=== PATIENT | male | born 1980 | race Caucasian/White ===

== ENCOUNTER 2024-06-30 11:55 | Emergency (ER) | payer MEDICAID, SELFPAY ==
[2024-06-30 12:07] VITALS: BP 136/78
--- NOTE | 2024-06-30 12:22 | ED.GENMED ---
History of Present Illness
General
Chief Complaint: Abdominal Symptoms
Source: patient and spouse
Exam Limitations: none
Time Seen by Provider: 06/30/24 12:14
History of Present Illness
History of Present Illness:
See MDM
Past History
Past History
ED Past Medical History: Asthma
ED Past Surgical History: Orthopedic (Knee)
Social History
Tobacco: Smoker
Alcohol: Occasional
Drug: Marijuana
Personal: Single
Family History
Family History: Unable to obtain
Phy Exam
Physical Exam
Physical Exam:
See MDM
Course
Orders/Labs/Results
Orders:
Orders
06/30/24 12:21
HYDROmorphone [Dilaudid] 0.5 mg IV NOW STA
Ketorolac [Toradol] 30 mg IV NOW STA
06/30/24 12:22
CT Abd/pelvis W Iv Cont Urgent
Comment: unable to tolerate PO
Reason For Exam: R abd pain
06/30/24 12:25
Complete Blood Count/With Diff Urgent
Comprehensive Metabolic Panel Urgent
Lipase Urgent
Abnormal Lab Results
06/30/24
12:25
WBC 18.4 H 10^3/uL
(4.8-10.8)
MCH 31.2 H pg
(27.0-31.0)
MPV 12.5 H fL
(7.4-10.4)
Abs Immat Gran (auto) 0.1 H 10^3/uL
(0-0.05)
Absolute Neuts (auto) 15.3 H 10^3/uL
(1.4-6.5)
Absolute Monos (auto) 0.8 H 10^3/uL
(0.1-0.6)
Neutrophils % 83.1 H %
(42.2-75.2)
Lymphocytes % 11.1 L %
(20.5-51.1)
Sodium 146 H mmol/L
(135-145)
Glucose 127 H mg/dl
(70-99)
Calcium 10.9 H mg/dl
(8.4-10.2)
ALT 51 H U/L
(0-50)
Total Protein 9.1 H g/dl
(6.3-8.2)
Albumin 5.2 H g/dl
(3.5-5.0)
06/30/24 12:25
06/30/24 12:25
Vital Signs
Initial and Last Documented VS:
Initial Vital Signs
Temp Pulse Resp BP Pulse Ox
98.4 F 70 16 136/78 98
06/30/24 12:07 06/30/24 12:07 06/30/24 12:07 06/30/24 12:07 06/30/24 12:07
Last Documented Vital Signs
Temp Pulse Resp BP Pulse Ox
98.4 F 54 11 125/67 97
06/30/24 12:07 06/30/24 13:45 06/30/24 12:45 06/30/24 13:38 06/30/24 13:45
MDM/Problems Addressed
Differential Diagnosis Includes:
HPI and MDM Narrative:
44-year-old male presenting with right abdominal pain. Patient brought back immediately for significant pain where he appears to be whimpering. It is hard to get a good story from him based on his demeanor. His at bedside states that they
have been to multiple emergency departments for similar symptoms and he has had a negative workup and they dismissed his symptoms. Patient is whimpering and crying and does appear to be in significant pain. However, I did discuss with at
bedside that there are many red flags in his story. For one, I cannot elicit any pain to palpation. Without a prior history of A-fib, doubt alternative diagnoses such as mesenteric ischemia. I am concerned that he goes from many different
emergency departments and that his story appears to be pain seeking behavior. As soon as the patient heard this, his demeanor changed immediately and he is no longer whimpering. Instead, he is yelling and threatening for me to do a good job to
find the source of his problem. Based on patient's argumentative and aggressive behavior, I did threaten to escort him out of the hospital if he does not comply with the code of conduct. Patient immediately went back to crying and whimpering.
I had already told the that I will at least search for source of symptoms with a CT scan. I will treat his pain with Toradol and Dilaudid for the time being. I also raised concern and suspicion that he has not followed up as an outpatient. I
also raise suspicion for his routine marijuana use but patient dismissed that this could be the cause
Physical exam
General: Whimpering and tearful. Appears to be in pain
HEENT: protecting airway
Neck: supple
CV: No evidence of cyanosis
Resp: No accessory muscle use
Abd: Non-distended. No pain elicited to palpation
Extremities: No deformities
Neuro: alert
Psych: Intermittently tearful and aggressive
Skin: Intact
Problems Addressed including Acute and Chronic Conditions affecting care:
1. Abdominal pain
Acuity: acute
Prognosis: stable
Details: Will obtain CT to look for infectious or surgical pathology
2. [ ]
Acuity: acute
Prognosis: stable
Details:
3. [ ]
Acuity: acute
Prognosis: stable
Details:
4. [ ]
Acuity: acute
Prognosis: stable
Details:
5. [ ]
Acuity:
Prognosis:
Details:
Updates
12:35 PM nurse is now telling me that his spouse saw him putting his finger down his throat to induce vomiting
Not unexpectedly, CT negative for acute pathology. We did discuss the hepatic hemangioma findings.
I did discuss that his next follow-up should be focused on GI. We discussed the importance of PCP follow-up first. Will give dose of Bentyl and give capsaicin cream and trial
Differential Diagnosis (but not limited to): Pain seeking behavior, colitis, acute cholecystitis
Testing considered: Right upper quadrant ultrasound
Drug therapy (if applicable): OTC meds, please see d/c instruction regarding Rx drugs
Amount and/or Complexity of Data Reviewed
Clinical info obtained from: Patient and
External data reviewed: N/A
Labs I independently reviewed (but not limited to): Leukocytosis but this is likely reactive
Radiology: The CT scan was personally and independently reviewed. In addition, official CT report reviewed.
Pulse Ox: not hypoxic
EKG independently reviewed: N/A
Safety Director: N/A
Critical Care: N/A
Risk of Complication:
Social Determinants of health: Good social support
Discussed with other providers: N/A
Escalation of Care includes Admit/Obs: After being observed in the Emergency Department, pt stable for discharge.
Occasional wrong word or 'sound a like' substitutions may have occurred due to the inherent limitations of voice recognition software. Read the chart carefully and recognize, using context, where substitutions have occurred.
*Critical Care Note
Total Time (30-74mins, 75-104mins- exclusive of procedures): Not Applicable
ED Attending Note
-
Portions of this chart may have been created with voice recognition software.� Occasional wrong word or��sound alike� substitutions may have occurred due to the inherent limitations of voice recognition software.
Discharge Plan
Departure
Patient Disposition: Home (Routine Discharge)
Date of Disposition: 06/30/24
Time of Disposition: 14:58
Patient with high blood pressure during this ER visit?: No
Discharge Problem:
Abdominal pain
Instructions: Abdominal Pain
Prescriptions:
New
dicyclomine 10 mg capsule
10 mg PO QID PRN (Reason: belly pain) Qty: 20 0RF
Referrals:
Steve Carcamo MD [Active] -
UNKNOWN - PT DOES,NOT KNOW [Family Provider] -
Activity Restrictions/Additional Instructions:
Please return for any worsening symptoms.
You may return at any time if you have further concerns.
It is not certain what is causing your pain. The CT scan was negative. There is always the potential of this being a gastrointestinal issue. As we discussed, you would benefit from a gastrointestinal evaluation.
Please follow up with your doctor at the first available appointment, preferably this week.
Thank you for choosing [facility].
Interventions
Interventions:
*Risk Screen - Suicide Last Done: 06/30/24 12:07
*General Assessment Last Done: 06/30/24 13:00
*Neglect/Abuse Screening Last Done: 06/30/24 12:07
*ED- Fall Risk Assessment Last Done: 06/30/24 13:00
*ED COVID-19 Vaccine History Last Done: 06/30/24 13:00
Discharge Date and Time
Print Language: KAZAKH
[2024-06-30 12:35] VITALS: BP 119/90
[2024-06-30 12:42] LABS: % Basophils 0.4 % (0-2); % Eosinophils 0.5 % (0-6); % Immature Granulocytes 0.4 % (0-0.5); % Lymphocytes 11.1 % (20.5-51.1); % Monocytes 4.5 % (1.7-9.3); % Neutrophils 83.1 % (42.2-75.2); Absolute Basophils 0.1 10^3/uL (0-0.2); Absolute Eosinophils 0.1 10^3/uL (0-0.7); Absolute Immature Granulocytes 0.1 10^3/uL (0-0.05); Absolute Monocytes 0.8 10^3/uL (0.1-0.6); Absolute Neutrophils 15.3 10^3/uL (1.4-6.5); Hematocrit 50.4 % (39.0-52.0); Hemoglobin 17.4 g/dL (13.0-18.0); Mean Corp Hgb Conc. 34.5 g/dL (33.0-37.0); Mean Corpuscular Hgb 31.2 pg (27.0-31.0); Mean Corpuscular Volume 90.3 fL (80.0-94.0); Mean Platelet Volume 12.5 fL (7.4-10.4); Nucleated Red Blood Cells % 0 % (-); Platelet Count 259 10^3/uL (130-400); Red Blood Cell Count 5.58 10^6/uL (4.70-6.10); Red Cell Dist. Width 12.7 % (11.5-14.5); White Blood Cell Count 18.4 10^3/uL (4.8-10.8)
[2024-06-30] MEDS: TORADOL 30 MG IV (12:42)
[2024-06-30] MEDS: DILAUDID 0.5 MG IV (12:43)
[2024-06-30 12:56] LABS: ALT (SGPT) 51 U/L (0-50); AST (SGOT) 33 U/L (17-59); Albumin 5.2 g/dl (3.5-5.0); Alkaline Phosphatase 97 U/L (38-126); Blood Urea Nitrogen 18 mg/dl (9-20); Calcium 10.9 mg/dl (8.4-10.2); Carbon Dioxide 26 mmol/L (22-30); Chloride 105 mmol/L (98-107); Glucose 127 mg/dl (70-99); Lipase 67 U/L (23-300); Potassium 4.7 mmol/L (3.5-5.1); Sodium 146 mmol/L (135-145); Total Bilirubin 1.1 mg/dl (0.2-1.3); Total Protein 9.1 g/dl (6.3-8.2); eGFR > 60.00
[2024-06-30 13:00] VITALS: BP 135/83; BMI 21.2
[2024-06-30 13:38] VITALS: BP 125/67
[2024-06-30 14:00] VITALS: BP 136/75
[2024-06-30 15:00] VITALS: BP 130/59
[2024-06-30] MEDS: BENTYL 20 MG IM (15:10)
[2024-06-30] MEDS: ZOSTRIX-HP 0.075% CREAM 1 APPLIC TOPICAL (15:32)
== END 2024-06-30 15:40 | disposition home or self-care (01) ==
LOC: EMR 11:55
PROVIDERS: EMERGENCY PHYSICIAN Student in an Organized Health Care Education/Training Program
DX: R10.9 Unspecified abdominal pain (principal); F12.90 Cannabis use, unspecified, uncomplicated; J45.909 Unspecified asthma, uncomplicated; F17.200 Nicotine dependence, unspecified, uncomplicated
CPT/HCPCS: 99284; 96374; 96375; 96372; 74177; 80053; 83690; 85025; Q9967

== ENCOUNTER 2024-07-06 15:16 | Inpatient (IN) | payer OTHER, SELFPAY ==
[2024-07-06 09:25] VITALS: BP 138/78
[2024-07-06 10:18] LABS: % Basophils 0.7 % (0-2); % Eosinophils 0.4 % (0-6); % Immature Granulocytes 0.4 % (0-0.5); % Lymphocytes 12.9 % (20.5-51.1); % Monocytes 3.8 % (1.7-9.3); % Neutrophils 81.8 % (42.2-75.2); Absolute Basophils 0.1 10^3/uL (0-0.2); Absolute Eosinophils 0.1 10^3/uL (0-0.7); Absolute Immature Granulocytes 0.1 10^3/uL (0-0.05); Absolute Monocytes 0.6 10^3/uL (0.1-0.6); Absolute Neutrophils 12.4 10^3/uL (1.4-6.5); Hematocrit 44.5 % (39.0-52.0); Hemoglobin 15.6 g/dL (13.0-18.0); Mean Corp Hgb Conc. 35.1 g/dL (33.0-37.0); Mean Corpuscular Hgb 31.7 pg (27.0-31.0); Mean Corpuscular Volume 90.4 fL (80.0-94.0); Mean Platelet Volume 12.1 fL (7.4-10.4); Nucleated Red Blood Cells % 0 % (-); Platelet Count 236 10^3/uL (130-400); Red Blood Cell Count 4.92 10^6/uL (4.70-6.10); Red Cell Dist. Width 12.4 % (11.5-14.5); White Blood Cell Count 15.1 10^3/uL (4.8-10.8)
[2024-07-06 10:34] LABS: ALT (SGPT) 35 U/L (0-50); AST (SGOT) 29 U/L (17-59); Albumin 4.4 g/dl (3.5-5.0); Alkaline Phosphatase 60 U/L (38-126); Blood Urea Nitrogen 16 mg/dl (9-20); Calcium 9.9 mg/dl (8.4-10.2); Carbon Dioxide 24 mmol/L (22-30); Chloride 107 mmol/L (98-107); Glucose 117 mg/dl (70-99); Lipase 83 U/L (23-300); Potassium 4.3 mmol/L (3.5-5.1); Sodium 142 mmol/L (135-145); Total Bilirubin 0.7 mg/dl (0.2-1.3); Total Protein 7.5 g/dl (6.3-8.2); eGFR > 60.00
--- NOTE | 2024-07-06 11:02 | ED.GENMED ---
History of Present Illness
General
Chief Complaint: Abdominal Pain
Source: patient and spouse
Exam Limitations: none
Time Seen by Provider: 07/06/24 09:45
Nursing documentation reviewed up to this point in time: agreed with
History of Present Illness
History of Present Illness:
44-year-old male with a past medical history of asthma, hiatal hernia, chronic nausea/vomiting presents to the ER with his today for evaluation of abdominal pain with nausea and vomiting. Patient was seen in this emergency room 06/30/2024 with
same symptoms and was found to have normal CT abdomen pelvis, ultimately discharged with prescription for Bentyl and referral to GI. He says symptoms have been ongoing for over a week. Taking history is very difficult as patient is rolling around
in the bed saying 'my tummy hurts.' He describes initially some pain in the epigastrium now seems to be radiating diffusely. No clear triggering or relieving factors noted. Associated with nausea and vomiting�he says he had some streaks of
hematemesis today. He has also had diarrhea and again he notes that he had some blood in his diarrhea. says he had a low-grade fever this week. He says he feels some mild lightheadedness. His says that he has been seen for this in the
past with no clear diagnosis�he says he was told he had a hiatal hernia 'but then they told me it healed.' He is requesting Toradol and Dilaudid for his pain.
Past History
Past History
ED Past Medical History: Asthma
ED Past Surgical History: Orthopedic (Knee)
Social History
Tobacco: Smoker
Alcohol: Occasional
Drug: Marijuana
Personal: Single
Family History
Family History: Unable to obtain
Review of Systems
Review of Systems
All Other Systems: ROS reviewed and negative except as documented in HPI and ROS
Constitutional: Reports fever
Respiratory: Denies trouble breathing
Cardiac: Denies chest pain
ABD/GI: Reports abdominal pain, nausea, vomiting, diarrhea and bloody stools
: Denies dysuria or flank pain
Musculoskeletal: Denies neck pain
Neurological: Reports dizzy; Denies headache
Phy Exam
Physical Exam
Physical Exam:
General: Rolling around in the bed, whimpering and saying 'my tummy hurts, my tummy hurts'
Head: Normocephalic, atraumatic
Eyes: Conjunctiva normal, sclera anicteric
Throat: Airway intact, handling secretions
Neck: Trachea midline, supple without meningismus
Lungs: Clear to auscultation bilaterally, no wheezing, rales, rhonchi
Heart: Regular rate and rhythm, no murmurs, gallops, or rubs
Abd: Soft, non distended, no reproducible tenderness in the abdomen, no palpable masses
Neuro: No gross deficits
Extremities: No edema in extremities, equal pulses in all extremities
Scores
Heart Failure Risk
Heart Failure Risk Score: Not Applicable
Heart Score for Chest Pain Patients
STEMI patient?: Not applicable
Withdrawal Assessment of Alcohol
Withdrawal Assessment Completed?: Not applicable
Course
Orders/Labs/Results
Orders:
Orders
07/06/24 10:06
Complete Blood Count/With Diff Urgent
Comprehensive Metabolic Panel Urgent
Lipase Urgent
07/06/24 11:00
CT Abd/pel W Iv And Oral Contr Urgent
Comment:
Reason For Exam: worsening abdominal pain
Iohexol [Omnipaque] See Protocol PO NOW STA
Ketorolac [Toradol] 15 mg IV NOW STA
Ondansetron Injectable [Zofran] 4 mg IV NOW STA
07/06/24 11:20
Alcohol Urgent
07/06/24 11:28
Drug Screen, Urine [Urine Drug Abuse Screen] Urgent
Date Specimen was Collected: 07/06/24
Time Specimen was Collected: 11:24
Urinalysis Reflex To Culture Urgent
Date Specimen was Collected: 07/06/24
Time Specimen was Collected: 11:24
Urine Microscopic Reflex Cult Urgent
Urine Culture Urgent
ZACH Source: U
Specimen Description:
Date Specimen was Collected: 07/06/24
Time Specimen was Collected: 11:24
07/06/24 12:02
Lorazepam [Ativan] 1 mg IV NOW STA
07/06/24 13:43
Haloperidol Lactate [Haldol] 1 mg IV NOW STA
07/06/24 13:55
Electrocardiogram (*1) Urgent
Reason for Study: QTc Monitoring
EKG- Treatment ONCE
07/06/24 13:59
Pantoprazole [Protonix IV] 40 mg IV NOW STA
Abnormal Lab Results
07/06/24 07/06/24
10:06 11:28
WBC 15.1 H 10^3/uL
(4.8-10.8)
MCH 31.7 H pg
(27.0-31.0)
MPV 12.1 H fL
(7.4-10.4)
Abs Immat Gran (auto) 0.1 H 10^3/uL
(0-0.05)
Absolute Neuts (auto) 12.4 H 10^3/uL
(1.4-6.5)
Neutrophils % 81.8 H %
(42.2-75.2)
Lymphocytes % 12.9 L %
(20.5-51.1)
Glucose 117 H mg/dl
(70-99)
Leukocyte Esterase Rfl 1+ A
(Negative)
Urine Albumin (Reflex) 2+ A
(Neg - Trace)
U Marijuana (THC) Screen Positive H
(Negative)
07/06/24 10:06
07/06/24 10:06
Vital Signs
Initial and Last Documented VS:
Initial Vital Signs
Temp Pulse Resp BP Pulse Ox
37.1 C 86 16 138/78 99
07/06/24 09:25 07/06/24 09:25 07/06/24 09:25 07/06/24 09:07/06/24 09:25
Last Documented Vital Signs
Temp Pulse Resp BP Pulse Ox
37.1 C 86 16 138/78 99
07/06/24 09:25 07/06/24 09:25 07/06/24 09:25 07/06/24 09:25 07/06/24 09:25
MDM/Problems Addressed
Differential Diagnosis Includes:
Cholelithiasis, cholecystitis, pancreatitis, gastritis, cyclic vomiting, cannabinoid hyperemesis, drug-seeking behavior
MDM/Problems Addressed:
44-year-old male returns to the emergency room with his for evaluation of abdominal pain with nausea, vomiting, diarrhea. Notes some slight hematemesis and hematochezia. Was seen 06/30, had reassuring CT scan, slight leukocytosis but otherwise
normal labs and was discharged with prescription for Bentyl and a GI referral. Symptoms never improved after discharge and he feels they are worsening which prompted return visit. Vitals and exam as above. Will place an IV check labs including a
CBC and a CMP, lipase, urine studies. Will check CT of the abdomen pelvis with p.o. and IV contrast today. Treat symptomatically�Toradol and Zofran to start. Reassess after the above.
Patient still having pain and nausea after initial treatment. Will trial some Ativan, suspect there may be an element of cyclic vomiting/hyperemesis syndrome.
On reassessment after Ativan patient now resting comfortably symptoms seem to have resolved. We are pending CT with p.o. and IV contrast. Continue to monitor.
Patient reports symptoms worsening once again�trial low-dose Haldol.
Patient still feeling unwell he does not feel that he can go home�although he has not had any vomiting here he has had some retching. He had 1 episode of diarrhea. He says that he does not think he can see GI expeditiously due to issues with
insurance. Will plan to admit for intractable nausea/vomiting with abdominal discomfort, failure of outpatient treatment. Discussed case with hospitalist.
*Radiology
Radiology exam reviewed: radiology read reviewed
*Pulse Oximetry
Patient hypoxic: no
*Critical Care Note
Total Time (30-74mins, 75-104mins- exclusive of procedures): Not Applicable
Data Reviewed
Review of Other/Old Records Reveals: Labs, Records and Radiology Studies
Source: patient, records and spouse
Patient Management
Social determinants of health affecting care: Financial situation
Discussion with other providers: Hospitalist (Discussed with hospitalist)
Escalation/DeEscalation of care consider admission/obs:
Admission indicated
ED Attending Note
-
Portions of this chart may have been created with voice recognition software.� Occasional wrong word or��sound alike� substitutions may have occurred due to the inherent limitations of voice recognition software.
Discharge Plan
Departure
Prescriptions:
No Action
dicyclomine 10 mg capsule
10 mg PO QID PRN (Reason: belly pain) Qty: 20 0RF
Referrals:
UNKNOWN - PT DOES,NOT KNOW [Family Provider] -
Interventions
Interventions:
*Risk Screen - Suicide Last Done: 07/06/24 10:17
*Neglect/Abuse Screening Last Done: 07/06/24 10:17
*ED COVID-19 Vaccine History Last Done: 07/06/24 10:17
YK-Bddlpc-Jvgnkzctif Assessment Last Done: 07/06/24 10:18
Discharge Date and Time
Print Language: BRAZILIAN
[2024-07-06] MEDS: TORADOL 15 MG IV (11:22)
[2024-07-06] MEDS: ZOFRAN 4 MG IV (11:22)
[2024-07-06] MEDS: OMNIPAQUE 50 ML PO (11:22)
[2024-07-06 11:41] LABS: Urine Albumin 2+ (Neg - Trace); Urine Bilirubin Negative (Negative); Urine Character Clear (Clear); Urine Color Yellow; Urine Glucose Negative (Negative); Urine Ketone Negative (Negative); Urine Leukocyte 1+ (Negative); Urine Nitrite Negative (Negative); Urine Occult Blood Negative (Negative); Urine Urobilinogen Negative (Neg - 1+)
[2024-07-06 11:59] LABS: Alcohol None Detected
[2024-07-06 12:03] LABS: Amphetamines Negative (Negative); Barbiturates Negative (Negative); Benzodiazepines Negative (Negative); Buprenorphine Negative (Negative); Cocaine Negative (Negative); Marijuana Positive (Negative); Methadone Negative (Negative); Methamphetamines Negative (Negative); Opiates Negative (Negative); Phencyclidine Negative (Negative); Tricyclic Antidepressants Negative (Negative)
[2024-07-06] MEDS: ATIVAN 1 MG IV (12:14)
[2024-07-06 12:42] LABS: Urine Amorphous Seen; Urine Mucus Many; Urine Squamous Cell 0-2 /LPF (Few); Urine Urothelial Cell 0-2 /LPF (FEW)
[2024-07-06 12:43] LABS: Urine Red Blood Cell 0-2 /HPF (0-2)
[2024-07-06] MEDS: HALDOL 1 MG IV (13:51)
[2024-07-06 14:00] VITALS: BP 145/91
--- NOTE | 2024-07-06 14:16 | HPS.HSE ---
Addendum entered and electronically signed by Ana Alex DO 07/06/24 15:44:
The patient is seen and examined. I discussed the patient at length with Dora, nurse practitioner, and I agree with her history and physical physical and assessment and plan of care as below. The following additions are left lower abdominal upper
pelvis focal area of jejunal jejunal intussusception with no evidence to suggest associated obstruction. There are top normal size lymph nodes in the periportal and portacaval regions similar to previous examination.
The patient is a 44-year-old gentleman with past medical history significant for asthma, hiatal hernia, anxiety, marijuana use who presents to the emergency department for evaluation of abdominal pain associate with nausea and vomiting that been
going on for 1 week. The patient has associated anorexia. He has been seen in the past for episodes of cyclical vomiting. He describes some diffuse epigastric and generalized abdominal pain.
Vital signs are reviewed. He is afebrile and hemodynamically stable.
Lungs are clear to auscultation bilaterally, cardiovascular regular rate and rhythm no murmurs rubs or gallops, abdomen is soft without any peritoneal signs
Labs reviewed as per below. WBC 15.1.
A/P
# Intractable nausea vomiting with epigastric discomfort likely gastritis versus cyclic vomiting vs cannabinoid hyperemesis syndrome , an episode of blood in the stool, and vomiting blood-the patient is unable to quantify
-GI consultation is appreciated
Keep the patient n.p.o.
IV PPI therapy
IV fluids
Supportive management
Stool studies
Hemoccult stool
Marijuana cessation
#Jejunal-Jejunal Intussusception-this is an acute finding and general surgery has been consulted.
- Keep the patient n.p.o. and await general surgery recommendations. There is no evidence for an acute obstruction.
Original Note:
Family Physician
-
Family Physician: NOT KNOW UNKNOWN - PT DOES
Chief Complaint
-
abdominal pain,n,v,d
History of Present Illness
44-year-old male with a past medical history of asthma, hiatal hernia, anxiety presents to the ER with his today for evaluation of abdominal pain with nausea and vomiting for past one week. patient was evaluated in ER on 06/30. CT obtained with
no acute findings and was sent home Bentyl. patient stated on improvement in his symptoms. He describes initially some pain in the epigastrium now seems to be radiating diffusely. No clear triggering or relieving factors noted. today he took Bipto
Bismol. patient stated he noticed blood in the stool and diarrhea today. he had a low-grade fever this week. He says he feels some mild lightheadedness. Patient denied any headache, dizziness syncope. Patient denied any chills, chest pain, short
of breath. Patient denies dysuria hematuria.
CT obtained in ER. Admitting for further manage
Medical History
Past Medical History
Past Medical History: Reports Other
Additional Past Medical History:
Anxiety, hiatal hernia
Past Surgical History: Reports Other
Additional Past Surgical History:
Right knee surgery and right hand surgery
Social History
Tobacco: Non-smoker (0.5 pack)
Alcohol: None
Drug: Marijuana (Smokes last night)
Personal:
Living: With Family
Family History
Family History: Not pertinent
Allergies / Home Medications
Allergies reflects when Allergies were last updated in [employer].
Home Medications with original date entered in [employer]
Allergy/Medication List:
Allergies
Allergy/AdvReac Type Severity Reaction Status Date / Time
No Known Allergies Allergy Unverified 07/06/24 09:28
Home Medications
dicyclomine 10 mg capsule 10 mg PO QIDPRN PRN belly pain 07/06/24
Review of Systems
-
Constitutional: Reports No Symptoms
EENT: Reports No Symptoms
Respiratory: Reports No Symptoms
Cardiac: Reports No Symptoms
Abdomen/GI: Reports Abdominal Pain, Nausea, Vomiting, Diarrhea and Bloody Stools
: Reports No Symptoms
Musculoskeletal: Reports No Symptoms
Skin: Reports No Symptoms
Neurological: Reports No Symptoms
Endocrine: Reports No Symptoms
Hematologic/Lymphatic: Reports No Symptoms
Psych: Reports No Symptoms
Physical Exam
Vital Signs
Vital Signs
Temp Pulse Resp BP Pulse Ox
98.8 F 86 16 138/78 99
07/06/24 09:25 07/06/24 09:25 07/06/24 09:25 07/06/24 09:25 07/06/24 09:25
Physical Exam
General: Well Developed, Well Nourished and No Apparent Distress
HEENT: NormoCephalic, Moist mucous membranes and Atraumatic
Respiratory: Clear
Cardiac: S1/S2 and Regular Rhythm; No Murmur or Rub
GI: Soft, Non Tender, Non Distended and Normal Bowel Sounds; No Organomegaly
Rectal: Deferred by Provider
Musculoskeletal: No Clubbing, No Cyanosis and No Edema
Skin: No Rash
Neuro: AO x 3 and Nonfocal/grossly intact
Psych: Calm
Laboratory Results
-
07/06/24 10:06
07/06/24 10:06
Laboratory Results
Total Bilirubin 0.7 mg/dl (0.2-1.3) 07/06/24 10:06
AST 29 U/L (17-59) 07/06/24 10:06
ALT 35 U/L (0-50) 07/06/24 10:06
Alkaline Phosphatase 60 U/L (38-126) 07/06/24 10:06
Lipase 83 U/L (23-300) 07/06/24 10:06
Data Reviewed
-
Lab Data: Labs Reviewed by me
Impression/Plan
-
# Intractable nausea vomiting with epigastric discomfort likely gastritis versus cyclic vomiting vs cannabinoid hyperemesis syndrome
#Jejunal-Jejunal Intussusception
- WBCs 15.1
- Positive marijuana
- CT abdomen pelvis Three hepatic hemangiomas, stable. Hepatomegaly.In the left lower abdomen/upper pelvis, focal area of jejunal-jejunal intussusception with no evidence to suggest associated obstruction. Please see above discussion.Top-normal
sized lymph nodes in the periportal and portacaval region, similar to previous examination. Statistically, these are likely reactive lymph nodes, often seen in this location. No further imaging follow-up is recommended.
- CT abdomen pelvis on 06/30 with impression of no acute pathology of the abdomen. Hepatic hemangiomas, mild diverticulosis, moderate prostate hypertrophy
- Patient received Haldol, Toradol, Ativan, Zofran, Protonix in the ER
- Will keep patient n.p.o
- Zofran as needed for nausea vomiting
-dilaudid prn for pain
- IV PPI continued
- GI consult
-surgery consulted
#Nicotine dependence
-smokes 0.5 daily
-denied Nicotine patch
# DVT prophylaxis
- SCD
#CODE STATUS
- Full code
[2024-07-06] MEDS: PROTONIX IV 40 MG IV (14:45)
--- NOTE | 2024-07-06 15:30 | CON.GI ---
Addendum entered and electronically signed by Lakia Grajeda DO 07/06/24 16:45:
The patient was seen and examined by me independently in collaboration with the nurse practitioner.
Past medical history/social history/medications/allergies/family history reviewed.
Lab data and imaging data reviewed.
Ankit Pedro is a 44-year-old male with past medical history of anxiety, PTSD, chronic medical marijuana use, history of suspected cannabinoid hyperemesis who returns to the ER with persistent nausea, vomiting, lower abdominal pain and reports of
hematemesis as well as bright red blood per rectum. He was seen in the ER last Tuesday with abdominal pain, CT abdomen pelvis was unremarkable he was discharged home with a prescription for Bentyl and instructions to follow-up with GI as an
outpatient. He reports having streaks of bright red blood in his vomit as well as drops of bright red blood in his stool, had some episodes of diarrhea. He does admit that he intermittently sees some blood with wiping. His most distressing
symptom at this time is his abdominal pain, described as a squeezing in his abdomen. He reports daily nausea and morning emesis for the last 2 years. He uses marijuana daily, since he was a teenager due to a very difficult childhood and PTSD.
WBC 18.4 -->15.1
Hgb 17.4 --> 15.6
MCV 90.4
Plt 236
BUN 16/Cr. 0.8
Tbili 0.7
AST 29
ALT 35
Alk phos 60
Lipase 83
-CT A/P w/ IV Contrast 06/30/24: 3x hepatic hemangiomas (the largest measures 6.9 cm); bowel loops are normal caliber. TI and appendix are normal. Mild diverticulosis. Mild fecal material throughout the colon.
-CT A/P with IV PO and IV Contrast 07/06/24: Hepatomegaly. Previously seen hemangiomas are again noted. focus of jejunal-jejunal intussusception in the left lower abdomen/upper pelvis, no evidence for more proximal obstruction. No significant bowel
wall thickening or diverticulitis. Likelyl reactive lymph nodes, which were previously visualized.
N/V-- given daily marijuana use, AM emesis which improves throughout the day, very consistent with cannabinoid hyperemesis syndrome vs. cyclic vomiting (not as consistent with this as this has discrete episodes with prolonged periods of being
asymptomatic) vs. EoE vs. rumination vs. functional vs. other
-reports hematemesis-- given stable hemoglobin and BUN, story is more consistent with some streaks of blood from retching
-monitor H&H
-PPI
-IVF
#Bright red blood per rectum
-intermittent, small volume hematochezia, overall, consistent with hemorrhoidal bleeding, however, he is overdue for CRC Screening and cannot definitely rule out alternative etiology. That said, with stable hemoglobin and normal CT scan, defer to
outpatient at which time we can perform both EGD and colonoscopy
#Abdominal pain-- unclear if this is baseline vs. new abdominal pain related to retching vs. gastroenteritis vs. intussusception
-finding of jejunal-jejunal intussusception on CT scan, not seen on prior CT on 06/30, no obstruction
-this can be incidental and transient and not highly suspicious his symptoms are related
-surgical evaluation pending
Original Note:
Consultation
-
Date/Time Consultation Requested: 07/06/24 1500
Date/Time Consultation Performed: 07/06/24 1530
Requesting Provider: BROOKLYNN Mast
Performing Provider: BROOKLYNN Rico, Eloisa Grajeda DO
Reason for Consultation: abdominal pain, nausea, hematemesis
Medical History
Chief Complaint / HPI
Chief Complaint: abdominal pain, nausea, vomiting and hematemesis
History of Present Illness:
Pt is a 44yo with hx asthma, PTSD, HH, hepatic hemangioma per prior imaging, Cannibis use with GI issues for last 2 years. He admits to period vomiting episodes but noted worsening abdominal pain and vomiting blood prompting 2 ER evals this week.
On admission initially noted with WBC 18,400 on 06/30 now 15,100 with hbg 17.4 then 15.6. He is otherwise noted with na 146, AST 51 and mild glucose elevation but otherwise stable labs. He completed 2 CT's scans. First with IV contrast with noted
hepatic hemangioma, diverticulosis and prostate hypertrophy and repeat / with IV and oral contrast with HM, hepatic hemangioma focal intussusception without obstruction and top sized lymph nodes in periportal and portacaval region likely reactive.
Denies NSAID use. No new medications.
In review with patient this recent episode with patient and vomiting began 1 weeks ago. He admits to vomiting but non specific about volume and amount of blood seen. He does complaint of severe pain with sense of squeezing in abdomen with prior
ER visits without etiology. He admits to GERD and bloating since last week. he also admit to occasional rectal bleeding with drips of blood from rectum- small volume. Prior to admission stools regular without diarrhea or constipation. Rare
medication use but does take pepto and tums as needed. + chronic Marajuana use that he uses for hx PTSD and anxiety. Denies hx EGD or colonoscopy in past. No NSAID or new medications.
Past Medical History
Past Medical History: Asthma, Psychiatric (PTSD, anxiety) and Other (hiatal hernia, hepatic hemangioma per CT )
Past Surgical History: Orthopedic (knee surgery , hand surgery )
Social History
Tobacco: Smoker
Alcohol: Former (heavy in younger years )
Drug: Marijuana
Personal:
Living: With Family
Employment: Employed
Family History
Family History: Reviewed & Not Pertinent
Allergies / Home Medications
Allergy/AdvReac Type Severity Reaction Status Date / Time
No Known Allergies Allergy Unverified 07/06/24 09:28
�Medication �Instructions �Recorded
dicyclomine 10 mg capsule 10 mg PO QIDPRN PRN belly pain 07/06/24
Review of Systems
-
History Source: Patient
Constitutional: Reports Weight Loss (few lbs last week )
EENT: Reports No Symptoms
Respiratory: Reports No Symptoms
Cardiac: Reports No Symptoms
Abdomen/GI: Reports Abdominal Pain, Nausea and Vomiting (reported hematemesis )
: Reports Dark Urine
Musculoskeletal: Reports No Symptoms
Skin: Reports No Symptoms
Neurological: Reports Weakness
Endocrine: Reports No Symptoms
Hematologic/Lymphatic: Reports Bleeding
Vital Signs
Temp Pulse Resp BP Pulse Ox
98.8 F 92 20 145/91 95
07/06/24 09:25 07/06/24 14:45 07/06/24 14:45 07/06/24 14:00 07/06/24 14:45
Physical Exam
Exam
General: Well Developed, Well Nourished and No Apparent Distress
HEENT: Normocephalic and Anicteric
Respiratory: Clear
Cardiac: Regular Rhythm
GI: Soft, Non Distended and Tender (mild diffuse )
Musculoskeletal: No Clubbing and No Cyanosis
Skin: Warm and Dry
Neuro: Awake, Alert and AO x 3
Psych: Calm and Other (anxious with ongoing pain )
Results
WBC 15.1 10^3/uL (4.8-10.8) H 07/06/24 10:06
Hgb 15.6 g/dL (13.0-18.0) 07/06/24 10:06
Hct 44.5 % (39.0-52.0) 07/06/24 10:06
MCV 90.4 fL (80.0-94.0) 07/06/24 10:06
Plt Count 236 10^3/uL (130-400) 07/06/24 10:06
Absolute Neuts (auto) 12.4 10^3/uL (1.4-6.5) H 07/06/24 10:06
Sodium 142 mmol/L (135-145) 07/06/24 10:06
Potassium 4.3 mmol/L (3.5-5.1) 07/06/24 10:06
Chloride 107 mmol/L (98-107) 07/06/24 10:06
Carbon Dioxide 24 mmol/L (22-30) 07/06/24 10:06
BUN 16 mg/dl (9-20) 07/06/24 10:06
Creatinine 0.8 mg/dL (0.7-1.3) 07/06/24 10:06
Calcium 9.9 mg/dl (8.4-10.2) 07/06/24 10:06
Total Bilirubin 0.7 mg/dl (0.2-1.3) 07/06/24 10:06
AST 29 U/L (17-59) 07/06/24 10:06
ALT 35 U/L (0-50) 07/06/24 10:06
Alkaline Phosphatase 60 U/L (38-126) 07/06/24 10:06
Lipase 83 U/L (23-300) 07/06/24 10:06
Diagnostic Image Results:
06/30/24 CT Abd/pelvis W Iv Cont
IMPRESSION: No acute pathology of the abdomen or pelvis identified.
Findings suggesting hepatic hemangiomas.
Mild diverticulosis. No evidence of acute diverticulitis.
Limited exam of the bowel without oral contrast.
Moderate prostate hypertrophy.
07/06/24 CT Abd/pel W Iv And Oral Contr
IMPRESSION: Three hepatic hemangiomas, stable. Hepatomegaly.
In the left lower abdomen/upper pelvis, focal area of jejunal-jejunal intussusception with no evidence to suggest associated obstruction. Please see above discussion.
Top-normal sized lymph nodes in the periportal and portacaval region, similar to previous examination. Statistically, these are likely reactive lymph nodes, often seen in this location. No further imaging follow-up is recommended.
Prior GI Procedures:
EGD: none
Colonoscopy:none
Assessment / Plan
-
Pt is a 44yo with hx asthma, PTSD, HH, hepatic hemangioma per prior imaging, Cannibis use with GI issues for last 2 years. He admits to period vomiting episodes but noted worsening abdominal pain and vomiting blood prompting 2 ER evals this week.
On admission initially noted with WBC 18,400 on 06/30 now 15,100 with hbg 17.4 then 15.6. He is otherwise noted with na 146, AST 51 and mild glucose elevation but otherwise stable labs. He completed 2 CT's scans. First with IV contrast with noted
hepatic hemangioma, diverticulosis and prostate hypertrophy and repeat 07/06 with IV and oral contrast with HM, hepatic hemangioma focal intussusception without obstruction and top sized lymph nodes in periportal and portacaval region likely reactive.
Denies NSAID use. No new medications. In review with patient this recent episode with patient and vomiting began 1 weeks ago. He admits to vomiting but non specific about volume and amount of blood seen. He does complaint of severe pain with
sense of squeezing in abdomen with prior ER visits without etiology. He admits to GERD and bloating since last week. he also admit to occasional rectal bleeding with drips of blood from rectum- small volume. Rare medication use but does take
pepto and tums as needed. + chronic Marajuana use that he uses for hx PTSD and anxiety. Denies hx EGD or colonoscopy in past. No NSAID or new medications.
-abdominal pain
-nausea/vomiting with ? streaks of blood
-rectal bleeding
-CT with focal intussusception without obstruction
-mild leukocytosis
-hx marijuana use
other med problems:
-PTSA
-HH
-hepatic hemangioma
-asthma
PLAN:
etiology of symptoms related to intussusception noted on CT, Cannibis use, viral illness, anxiety related vs other
agree with surgical eval
discussed possible Cannibis hyperemesis disorder as a possibility--discussed abstinence with monitoring of anxiety symptoms
cont supportive care with IVF, pain control, antiemetics
hbg stable 15-17 range - hold on EGD unless signs of aggressive bleeding
cont PPI
NSAID avoidance which pt denies
pain control per hospitalist
I have asked staff to record emesis and vomiting
monitor for recurrent rectal bleeding and need for further inpatient work up
-
-
Thank you for consultation and allowing me to participate in the patient's care. Please call the distance education director GI physician during the after hours with any questions or concerns.
--- NOTE | 2024-07-06 16:06 | CON.GS ---
Addendum entered and electronically signed by Ap Winslow MD 07/06/24 21:32:
I saw and examined the patient.
The Carpet Weaver's note was reviewed and I agree with the note.
Comment: Pt sleeping during my encounter, easily rouses. Pain controlled with meds. Denies n/v, passing flatus. Localized pain to epigastrium when questioned. On exam belly soft, no guarding, no consistent ttp in any quadrant. Mild leukocytosis
noted. CT shows intussception of sb in the LLQ. Plan for sips and chips tonight. Rpt CT in the am to ensure resolution of intussusception which appears to be an incidental finding. If this resolves on subsequent scan recommend diet advancement and
DC with outpt f/u.
Original Note:
Consultation
-
Date/Time Consultation Performed: 07/06/24 7565
Medical History
-
Chief Complaint: abdominal pain with nausea/vomiting
History of Present Illness:
Mr Pedro is a 44 yo male with a h/o asthma who was initially evaluated in the ED on 06/30 for abdominal pain with nausea and vomiting and presents again today for the same. Chronically, he does struggle with morning nausea/emesis and has seen some
blood streaking on toilet tissue when wiping after a BM. He was at his baseline when about one week ago he notes intermittent symptoms of severe pain starting in the epigastrium/LUQ then becoming more generalized in the morning as well. Since
Tuesday, he notes that he usually awakens and pain begins in the left epigastric area around the time he is having his morning BM and then becomes more generalized with nausea and vomiting. He feels that holding pressure on the site helps but does
not resolve the pain by any means. By the afternoon, the pain has usually been gone and he has been able to have small meals for dinner. This pattern has repeated daily this entire week. Today, he did not feel better by the afternoon with severe
pain persisting causing him to present for evaluation. He denies fever or chills. He is crying in pain during exam although without noted abdominal tenderness. He was able to discuss his symptoms a little more clearly once administered IV Dilaudid.
Past Medical History
Past Medical History: Asthma and Psychiatric (anxiety, ptsd)
Past Surgical History: Orthopedic (right knee and hand)
Social History
Tobacco: Smoker (1/2ppd)
Alcohol: Former (formerly heavy)
Drug: Marijuana (medical)
Personal:
Living: With Family
Family History
Family History: Reviewed & Not Pertinent
Allergies / Home Medications
Allergy/AdvReac Type Severity Reaction Status Date / Time
No Known Allergies Allergy Unverified 07/06/24 09:28
�Medication �Instructions �Recorded �Confirmed �Type
dicyclomine 10 mg capsule 10 mg PO QIDPRN PRN belly pain 07/06/24 07/06/24 History
Review of Systems
-
History Source: Patient and Family
All other systems: Negative unless noted
A 10 point review of systems was completed, and was negative except as per HPI.
Physical Exam
Vital Signs
Temp Pulse Resp BP Pulse Ox
98.8 F 92 20 145/91 95
07/06/24 09:25 07/06/24 14:45 07/06/24 14:45 07/06/24 14:00 07/06/24 14:45
Lab Results
07/06/24 10:06
07/06/24 10:06
WBC 15.1 10^3/uL (4.8-10.8) H 07/06/24 10:06
Hgb 15.6 g/dL (13.0-18.0) 07/06/24 10:06
Hct 44.5 % (39.0-52.0) 07/06/24 10:06
Plt Count 236 10^3/uL (130-400) 07/06/24 10:06
Abs Immat Gran (auto) 0.1 10^3/uL (0-0.05) H 07/06/24 10:06
Neutrophils % 81.8 % (42.2-75.2) H 07/06/24 10:06
Physical Exam
General: Well Developed and Well Nourished
HEENT: Moist Mucous Membranes
Respiratory: Non Labored Respirations
GI: Soft, Non Tender and Non Distended
Skin: Warm and Dry
Neuro: Awake, Alert and AO x 3
Psych: Other (tearful)
Data Reviewed
-
CT Scan: Image Personally Visualized and interpreted, Report Reviewed by me, Discussed with Patient and Discussed with Family
Labs: Labs Reviewed by me, Discussed with Physician, Discussed with Patient and Discussed with Family
Old Records: Reviewed
Assessment / Plan
-
44 yo male with intermittent severe epigastric to LUQ abdominal pain with nausea and vomiting throughout the past week who initially presented on 06/30 and returned today for the same. CT abd without PO contrast initially negative, but on this
presentation CT with po and IV contrast does demonstrate jejunal-jejunal intussusception without significant bowel proximal bowel dilation/obstruction noted. AFVSS. Leukocytosis present, hemoglobin stable. Gastroenterology following with us given
concern for bleeding
--Continue NPO. Hold off on NGT for now.
--Analgesics/antiemetics
--IVF while NPO
--Will review imaging with attending surgeon with further recs to follow
[2024-07-06] MEDS: DILAUDID 0.5 MG IV ×2 (16:32→20:34)
[2024-07-06 16:36] VITALS: BP 153/89
[2024-07-06] MEDS: NSS 1000 IV (17:38)
[2024-07-06 17:57] LABS: Hemoglobin 14.2 g/dL (13.0-18.0)
[2024-07-06 22:48] LABS: Hematocrit 38.8 % (39.0-52.0); Hemoglobin 13.8 g/dL (13.0-18.0)
[2024-07-06 23:00] VITALS: BP 122/71
[2024-07-07] MEDS: DILAUDID 0.5 MG IV ×5 (00:44→13:35)
--- NOTE | 2024-07-07 01:55 | PTCARENOTE ---
AAO x 4. Patient can be anxious. VSS. Complains of 8/10 abdominal pain--PRN dilaudid administered for pain management. OOB x 1 assist, to the bathroom, with no devices--patient does complain of mild lightheadedness. Patient denies nausea. No
diarrhea. Unable to obtain stool sample over night. Trending H & H q 6 hours. Hgb stable, WNL. IV fluids running at 80 ml/hr. Bed in lowest position. Hourly rounding implemented. Call houser and personal belongings within reach.
[2024-07-07] MEDS: NSS 1000 IV (04:33)
--- NOTE | 2024-07-07 06:26 | W.PN.HOSP.TC ---
Today's Communication/Plan
-
see a/p
Assessment / Plan
Assessment / Plan
Physical Exam
General: appears uncomfortable
HEENT: NormoCephalic, Moist mucous membranes and Atraumatic
Respiratory: Clear
Cardiac: S1/S2 and Regular Rhythm; No Murmur or Rub
GI: Soft, Non Tender, Non Distended and Normal Bowel Sounds
Musculoskeletal: No Clubbing, No Cyanosis and No Edema
Skin: No Rash
Neuro: AO x 3 and Nonfocal/grossly intact
Psych: Calm
44M asthma, hiatal hernia, anxiety p/w abd pain nausea vomiting for past week. Patient was evaluated in ER on 06/30. CT obtained with no acute findings and was sent home with Inna. He describes initially some pain in the epigastrium then
radiating diffusely. No clear triggering or relieving factors noted. Patient noted blood in stool/diarrhea prompting repeat ED eval. Endorsed low grade fever with mild lightheadedness.
# Intractable nausea vomiting with epigastric discomfort likely gastritis versus cyclic vomiting vs cannabinoid hyperemesis syndrome
#Jejunal-Jejunal Intussusception
- Leukocytosis resolved
- Positive marijuana
- Patient received Haldol, Toradol, Ativan, Zofran, Protonix in the ER
- CT abdomen pelvis on 06/30 noted no acute pathology of the abdomen. Hepatic hemangiomas, mild diverticulosis, moderate prostate hypertrophy
- CT abdomen pelvis 07/06 noted Three hepatic hemangiomas, stable. Hepatomegaly.In the left lower abdomen/upper pelvis, focal area of jejunal-jejunal intussusception with no evidence to suggest associated obstruction. Top-normal sized lymph nodes in
the periportal and portacaval region, similar to previous examination. Statistically, these were likely reactive lymph nodes, often seen in this location. No further imaging follow-up was recommended.
-CT abd/pelvis was repeated to follow up intussusception as noted in study 07/06 above, No intussusception was noted on CT study 07/07
- NPO, intussusception resolved, diet was advanced to clear liquid with plans to advance as tolerated
- Zofran as needed for nausea vomiting
-dilaudid prn for pain
- IV PPI continued
- GI consult appreciated outpt follow up recommended
-surgery consult appreciated no surgery planned
#Nicotine dependence
-smokes 0.5 daily
-denied Nicotine patch
# DVT prophylaxis
- SCD
#CODE STATUS
- Full code
Patient was planned for discharge pending tolerating advancement of diet. However he ripped his own IV out and eloped as noted in Patient Care Note 07.07.24
I spent a total of 40 minutes with the patient or on the floor. More than 50% of this time involved counseling and coordination of care.
Anticipated Discharge: Today
Subjective/Interval History
-
Date of Service: July 07, 2024
appears uncomfortable but requesting to eat. Diarrhea noted improved.
Objective Data
-
Labs:
Laboratory Results
07/06/24 07/07/24 07/07/24
22:31 04:17 06:00
WBC Pending
Hgb 13.8 Pending Pending
Hct 38.8 L Pending Pending
Plt Count Pending
Vital Signs:
Vital Signs
Temp Pulse Resp BP Pulse Ox
98.6 F 65 16 122/71 97
07/06/24 23:00 07/06/24 23:00 07/06/24 23:00 07/06/24 23:00 07/06/24 23:00
[2024-07-07 07:48] VITALS: BP 125/80
[2024-07-07] MEDS: PROTONIX IV 40 MG IV (08:19)
[2024-07-07] MEDS: NSS (PRESERVATIVE FREE) 10 ML IV (08:19)
[2024-07-07 08:44] LABS: Hematocrit 40.1 % (39.0-52.0); Mean Corp Hgb Conc. 34.9 g/dL (33.0-37.0); Mean Corpuscular Hgb 31.5 pg (27.0-31.0); Mean Corpuscular Volume 90.3 fL (80.0-94.0); Mean Platelet Volume 12.6 fL (7.4-10.4); Platelet Count 200 10^3/uL (130-400); Red Blood Cell Count 4.44 10^6/uL (4.70-6.10); Red Cell Dist. Width 12.5 % (11.5-14.5); White Blood Cell Count 9.3 10^3/uL (4.8-10.8)
[2024-07-07 08:45] LABS: Hematocrit 39.8 % (39.0-52.0); Hemoglobin 13.9 g/dL (13.0-18.0)
--- NOTE | 2024-07-07 10:25 | W.PN.GI.CBS2 ---
Today's Communication / Plan
-
Hgb stable. Continue PPI. GI will sign off. Outpatient f/u with GI.
Assessment / Plan
-
Ankit Pedro is a 44-year-old male with past medical history of anxiety, PTSD, chronic medical marijuana use, history of suspected cannabinoid hyperemesis admitted to after 2 visits to the ER in 1 week with persistent nausea, vomiting, lower
abdominal pain and reports of hematemesis as well as bright red blood per rectum. Workup significant for jejunal-jejunal intususcception on CT scan.
WBC 18.4 -->15.1--> 9.3
Hgb 17.4 --> 15.6--> 14
MCV 90.4
Plt 236
BUN 16/Cr. 0.8
Tbili 0.7
AST 29
ALT 35
Alk phos 60
Lipase 83
-CT A/P w/ IV Contrast 06/30/24: 3x hepatic hemangiomas (the largest measures 6.9 cm); bowel loops are normal caliber. TI and appendix are normal. Mild diverticulosis. Mild fecal material throughout the colon.
-CT A/P with IV PO and IV Contrast 07/06/24: Hepatomegaly. Previously seen hemangiomas are again noted. focus of jejunal-jejunal intussusception in the left lower abdomen/upper pelvis, no evidence for more proximal obstruction. No significant bowel
wall thickening or diverticulitis. Likelyl reactive lymph nodes, which were previously visualized.
N/V-- given daily marijuana use, AM emesis which improves throughout the day, very consistent with cannabinoid hyperemesis syndrome vs. cyclic vomiting (not as consistent with this as this has discrete episodes with prolonged periods of being
asymptomatic) vs. gastroparesis vs. EoE vs. rumination vs. functional vs. other
-reports hematemesis-- given stable hemoglobin and BUN, story is more consistent with some streaks of blood from retching
-monitor H&H
-PPI
-outpatient f/u for further workup of his chronic symptoms
#Bright red blood per rectum
-intermittent, small volume hematochezia, overall, consistent with hemorrhoidal bleeding, however, he is overdue for CRC Screening and cannot definitely rule out alternative etiology. That said, with stable hemoglobin and normal CT scan, defer to
outpatient at which time we can perform both EGD and colonoscopy
#Abdominal pain-- unclear if this is baseline vs. new abdominal pain related to retching vs. gastroenteritis vs. intussusception
-finding of jejunal-jejunal intussusception on CT scan, not seen on prior CT on 06/30, no obstruction
-this can be incidental and transient and not highly suspicious his symptoms are related
-surgery following
At this point, given his stable hemoglobin or episodes of bleeding since admission, recommend close outpatient follow-up with GI for management/workup of his chronic symptoms as well as colonoscopy for both screening and diagnostic purposes as well
as consideration for EGD.
Subjective
Subjective
Date of Service: July 07, 2024
Patient seen in follow-up, resting comfortably. Reports improvement in pain. No diarrhea overnight. Hgb stable at 14.0
Objective
Data Reviewed
Laboratory Data:
Laboratory Results
07/07/24 07:16
07/06/24 10:06
Laboratory Results
Total Bilirubin 0.7 mg/dl (0.2-1.3) 07/06/24 10:06
AST 29 U/L (17-59) 07/06/24 10:06
ALT 35 U/L (0-50) 07/06/24 10:06
Alkaline Phosphatase 60 U/L (38-126) 07/06/24 10:06
Lipase 83 U/L (23-300) 07/06/24 10:06
Vital Signs and I&O:
Vital Signs
Temp Pulse Resp BP Pulse Ox
97.8 F 68 15 125/80 96
07/07/24 07:48 07/07/24 07:48 07/07/24 07:48 07/07/24 07:48 07/07/24 07:48
I&O
07/06/24 07/07/24 07/08/24
06:59 06:59 06:59
Output Total 200 / 200
Balance -200 / -200
Physical Exam
Physical Exam
HEENT: Anicteric and Moist mucous membranes
GI: Soft, Non Distended and Non Tender
[2024-07-07 14:30] VITALS: BP 167/88
--- NOTE | 2024-07-07 14:53 | PTCARENOTE ---
Pt rang for RN around 1405 asking if he needed IVF anymore. Dr Espinoza was contacted. Dr Espinoza responded at 1420 while RN was in another room. He answered that they could be discontinued and was advancing his diet. Rn went in to the room to make him
aware of new orders and pt was not in the room. RN called pt's to verify that he had left the hospital and he stated yes ma'am. IV catheter was found hanging off the bed attached to IV tubing. DR Espinoza aware that pt eloped. Nursing Radio/Tv Technician
also made aware.
--- NOTE | 2024-07-07 14:55 | W.DCSUMMARY ---
Discharge Summary
Discharge Data
Date of Admission: 07/06/24
Date of Discharge: 07/07/24
-
Pending Results: No
Additional Pending Results:
stool studies
Hospital Course
44M asthma, hiatal hernia, anxiety p/w abd pain nausea vomiting for past week. Patient was evaluated in ER on 06/30. CT obtained with no acute findings and was sent home with Inna. He describes initially some pain in the epigastrium then
radiating diffusely. No clear triggering or relieving factors noted. Patient noted blood in stool/diarrhea prompting repeat ED eval. Endorsed low grade fever with mild lightheadedness. Intractable nausea vomiting with epigastric discomfort likely
gastritis versus cyclic vomiting vs cannabinoid hyperemesis syndrome. Initial Leukocytosis resolved without need for abx. No significant anemia was noted. Positive marijuana. Patient received Haldol, Toradol, Ativan, Zofran, Protonix in the ER.
CT abdomen pelvis on 06/30 noted no acute pathology of the abdomen. Hepatic hemangiomas, mild diverticulosis, moderate prostate hypertrophy. CT abdomen pelvis 07/06 noted Three hepatic hemangiomas, stable. Hepatomegaly. In the left lower
abdomen/upper pelvis, focal area of jejunal-jejunal intussusception with no evidence to suggest associated obstruction. Top-normal sized lymph nodes in the periportal and portacaval region, similar to previous examination. Statistically, these were
likely reactive lymph nodes, often seen in this location. No further imaging follow-up was recommended. CT abd/pelvis was repeated to follow up intussusception as noted in study 07/06 above, No intussusception was noted on CT study 07/07. 07/07 CT
also noted possible mild proctocolitis and moderate severe periportal edema liver (reviewed with GI who recommended outpt follow up). Intussusception resolved, diarrhea improving, NPO diet was advanced to clear liquid with plans to advance as
tolerated. GI consult appreciated outpt follow up recommended. Surgery consult appreciated no surgery planned. Patient was planned for discharge pending tolerating advancement of diet. However he ripped out his own IV and eloped as noted in
Patient Care Note 07.07.24
Discharge Plan
-
Patient Disposition: Against Medical Advice
Referrals:
UNKNOWN - PT DOES,NOT KNOW [Family Provider] -
Prescriptions:
No Action
dicyclomine 10 mg capsule
10 mg PO QIDPRN PRN (Reason: belly pain)
Patient Comments:
07/06/24: Unable to interview patient. Not sure if this medication is taken.
Discharge Date and Time
Discharge Date/Time: 07/07/24 14:55
Print Language: [place]ET[place]ESE
--- NOTE | 2024-07-07 14:56 | W.PN.GS2 ---
Today's Communication / Plan
-
ADAT
Assessment / Plan
-
44 yo male presenting with abdominal pain. Intussusception noted on CT imaging, no longer present on repeat imaging. ?proctocolitis present
Feels better but still with diarrhea, notes he was recently on ABX for dental work. C-diff sent and negative.
--ADAT as per primary team
--No surgery planned, dispo planning as per primary team
Subjective Data
-
Date of Service: July 07, 2024
Patient seen and examined at bedside with Dr. Caceres. Denies pain. Denies nausea. Feels a bit better. Eager to go home and see his children. Having some diarrhea.
Objective Data
-
Intake and Output
07/06/24 07/07/24 07/08/24
06:59 06:59 06:59
Output Total 200 / 200
Balance -200 / -200
Output:
Urine, Voided 200 / 200
Vital Signs
Temp Pulse Resp BP Pulse Ox
98.6 F 73 15 167/88 99
07/07/24 14:30 07/07/24 14:30 07/07/24 14:30 07/07/24 14:30 07/07/24 14:30
Lab Results
07/07/24 07:16
07/06/24 10:06
Calcium 9.9 mg/dl (8.4-10.2) 07/06/24 10:06
Total Bilirubin 0.7 mg/dl (0.2-1.3) 07/06/24 10:06
AST 29 U/L (17-59) 07/06/24 10:06
ALT 35 U/L (0-50) 07/06/24 10:06
Alkaline Phosphatase 60 U/L (38-126) 07/06/24 10:06
Total Protein 7.5 g/dl (6.3-8.2) 07/06/24 10:06
Albumin 4.4 g/dl (3.5-5.0) 07/06/24 10:06
Physical Exam
-
NAD
ABD soft, nd, nt
--- NOTE | 2024-07-07 15:22 | CM ---
CM reviewed chart, patient left hospital prior to assessment.
== END 2024-07-07 14:55 | disposition left against medical advice (07) | DRG 378 ==
LOC: 4 WEST ACU 15:16
PROVIDERS: Registered Nurse; ADMITTING PHYSICIAN Internal Medicine; ATTENDING PHYSICIAN Internal Medicine; CONSULT PHYSICIAN Internal Medicine; CONSULT PHYSICIAN Surgery; EMERGENCY PHYSICIAN Emergency Medicine
DX: K29.71 Gastritis, unspecified, with bleeding (principal); K56.1 Intussusception; F17.200 Nicotine dependence, unspecified, uncomplicated; D18.03 Hemangioma of intra-abdominal structures; J45.909 Unspecified asthma, uncomplicated; Z53.29 Procedure and treatment not carried out because of patient's decision for other reasons; K21.9 Gastro-esophageal reflux disease without esophagitis; K57.30 Diverticulosis of large intestine without perforation or abscess without bleeding; N40.0 Benign prostatic hyperplasia without lower urinary tract symptoms; F12.90 Cannabis use, unspecified, uncomplicated; R63.0 Anorexia; R59.9 Enlarged lymph nodes, unspecified
CPT/HCPCS: 74177; 80053; 80306; 81003; 81015; 82077; 83690; 85014; 85018; 85025; 85027; 87045; 87046; 87086; 87324; 87427; 87449; 93005; 96374; 96375; 99285; G0378; Q9967